=== PATIENT | female | born 1940 | race Caucasian/White ===

== ENCOUNTER → 2017-02-12 | Outpatient (CLI) | payer MEDICARE, BC ==
--- NOTE | 2017-02-12 11:11 | RAD ---
DEXA scan 02/12/2017 Clinical history: Risk factors for osteoporosis. Postmenopausal female. Technique: DEXA of the lumbar spine and right hip was performed. FINDINGS: The mean bone mineral density of the lumbar spine is 1.218 g/sq cm. This corresponds to a T score of 0.3. This is within normal limits. The mean bone mineral density of right hip is 0.967 g/sq cm. This corresponds to a T score of -0.3. This is within normal limits. IMPRESSION:The patient's mean bone mineral densities are within normal limits. According to [employer] Organization, the definition of osteoporosis and osteopenia for women is as follows: Normal = T score at or above -1.0 SD. Osteopenia = T score between -1.0 and -2.5 SD. Osteoporosis = T score at or below -2.5 SD.
== END | disposition home or self-care (01) ==
LOC: DXRAD 10:36
PROVIDERS: ATTEND Nurse Practitioner Family
DX: Z78.0 Asymptomatic menopausal state (principal)
CPT/HCPCS: 77080

== ENCOUNTER → 2018-02-12 | Outpatient (CLI) | payer MEDICARE, BC ==
--- NOTE | 2018-02-13 08:45 | RAD ---
Renal sonography Clinical indications: Chronic kidney disease stage IV. Comparison: September 01, 2012. Findings: The longitudinal and AP and transverse dimensions of the right kidney are 9.8 cm and 4.2 cm and 3.5 cm respectively. The longitudinal and AP and transverse dimensions of the left kidney are 10.7 cm and 4.9 cm and 3.5 cm respectively. No hydronephrosis or renal mass or perinephric fluid collection is seen on either side. There is cortical thinning bilaterally. Cortex measures 5 mm in thickness on the right side and measured 11 mm in thickness previously. The cortex measures 8.5 mm in thickness on the left side and measured 16 mm in thickness previously. Overall kidney length of both kidneys has decreased as well. The length of the right kidney previously was 12.2 cm and the length of the left kidney previously was 13.0 cm. This is consistent with renal atrophy secondary to chronic medical renal disease or older age. The urinary bladder is moderately distended with approximate urinary bladder volume of 526 cc. IMPRESSION: No hydronephrosis on either side. Progressive atrophy of both kidneys which may be secondary to chronic medical renal disease or other age.
== END | disposition home or self-care (01) ==
LOC: US 14:58
PROVIDERS: ATTEND Internal Medicine Nephrology
DX: N18.4 Chronic kidney disease, stage 4 (severe) (principal); N26.9 Renal sclerosis, unspecified
CPT/HCPCS: 76770